=== PATIENT | male | born 1990 | race Caucasian/White ===

== ENCOUNTER 2022-01-16 15:36 | Emergency (ER) | payer BC, SELFPAY ==
--- NOTE | ~2022-01-16 | XR_ITS ---
EXAMINATION: XR ankle LT min 3V DATE: 01/16/2022 15:57 INDICATION: Lateral left ankle pain TECHNIQUE: Anteroposterior, oblique, mortise, and lateral views of the left ankle were obtained. COMPARISON: None. FINDINGS: Alignment is normal. No fracture. Joint spaces are well maintained. No ankle joint effusion. The so ft tissues are unremarkable. IMPRESSION: 1. Negative left ankle radiographs. Reviewed, dictated and finalized at location A.
[2022-01-16 15:41] VITALS: BP 132/88; PULSE 74; RESP 16; TEMP 36.9; O2SAT 98
[2022-01-16 15:54] VITALS: BP 132/88; PULSE 74; RESP 16; TEMP 36.9; O2SAT 98
--- NOTE | 2022-01-16 16:21 | ED.LOWEXIN ---
HPI - Extremity Injury (Lower) General Chief Complaint: Extremity Injury, Lower Stated Complaint: Left ankle pain Time Seen by Provider: 01/16/22 16:21 Source: patient Mode of arrival: ambulatory Limitations: no limitations History of Present Illness HPI Narrative: 31-year-old male presented for complaint of left ankle pain with gradual onset yesterday worsening over the last 2 days. He denies injury. Pain is only with weightbearing and located in medial aspect. He denies redness, swelling, or bruising to the ankle. Denies numbness or tingling to the foot. He has not taken anything for pain. He endorses similar symptoms about 2 years ago, unable to recall the diagnosis or treatment plan. Related Data Allergies Allergy/AdvReac Type Severity Reaction Status Date / Time No Known Allergies Allergy Verified 01/16/22 15:53 Review of Systems Review of Systems: CONSTITUTIONAL: Denies body aches, fever, chills EYES: Denies visual changes ENT: Denies rhinorrhea, congestion CARDIOVASCULAR: Denies chest pain, palpitations, or edema. RESPIRATORY: Denies cough or dyspnea. SKIN: Denies rash, itching, or wounds. MUSCULOSKELETAL: Reports ankle pain NEUROLOGIC: Denies headache, numbness, tingling, or weakness. All systems reviewed & are unremarkable except as noted in HPI and below PMFSH Comments At time of signature, I have reviewed and agree with nursing past medical, surgical, social and family history unless otherwise noted. Please see nursing chart for further information. There is no relevant family history pertinent to the presenting complaint Exam Narrative: GENERAL: Well-appearing CHEST: Speaks in full sentences. No respiratory distress. HEART: Regular rate and rhythm. Normal and equal peripheral pulses. EXTREMITIES: Left foot has normal strength and sensation, normal range of motion . No edema erythema or ecchymosis to ankle No point tenderness. No open wounds, or obvious deformity; pulse palpable and equal bilaterally, skin warm, dry, pink. Capillary refill less than 3 seconds. SKIN: Warm, dry, no rash. NEURO: Alert and oriented x3. Course Course Emergency Course: Patient is aware of diagnosis, understands and agrees to treatment plan. Anticipatory guidance given. Patient agrees to follow-up as directed and is aware of reasons to seek care at the emergency department. Portions of this record may have been created with voice recognition software Level of Care: Express Care Visit Vital Signs Vital signs: Vital Signs Temperature 98.5 F 01/16/22 15:41 Pulse Rate 74 01/16/22 15:41 Respiratory Rate 16 01/16/22 15:41 Blood Pressure 132/88 01/16/22 15:41 Pulse Oximetry 98 01/16/22 15:41 Oxygen Delivery Room Air 01/16/22 15:41 Temperature 98.5 F 01/16/22 15:54 Pulse Rate 74 01/16/22 15:54 Respiratory Rate 16 01/16/22 15:54 Blood Pressure 132/88 01/16/22 15:54 Pulse Oximetry 98 01/16/22 15:54 Oxygen Delivery Room Air 01/16/22 15:54 Reviewed MDM - Extremity Injury (Lower) MDM Narrative Medical decision making narrative: Result of x-ray reviewed with patient. Advised supportive measures and signs/symptoms to go to the ER. Alfonso wrap applied. Pt is appropriate for outpt treatment and f/u. Differential Diagnosis Differential diagnosis: Likely ankle sprain and strain, ankle fracture and other (Gout, tendinitis) Imaging Data Radiologist's impression: Patient: Reji Husain : 1990 MR#: [id number] Age/Sex: 31 / M Acct:[id number] Loc: [facility]? ? ADM Date: 01/16/22Attending Dr: Ordering Physician: Meagan Ward APRN Date of Service: 01/16/22 Procedure(s): XR ankle LT min 3V Accession Number(s): [id number] cc: Meagan Ward APRN; [place], Bello Galan APRN~ EXAMINATION: XR ankle LT min 3V DATE: 01/16/2022 15:57 INDICATION: Lateral left ankle pain TECHNIQUE: Anteroposterior, oblique, mortise, and lateral views of the left ank
== END 2022-01-16 16:33 | disposition home or self-care (01) ==
PROVIDERS: Emergency Provider Nurse Practitioner Family; PCP Nurse Practitioner
DX: M25.572 Pain in left ankle and joints of left foot (principal)
CPT/HCPCS: 73610; 99213; G0463